=== PATIENT | female | born 1950 | race Caucasian/White ===

== ENCOUNTER 2022-02-13 07:57 | Outpatient (CLI) | payer MEDICARE ==
[~2022-02-13] VITALS: Ht 154.9 cm; Wt 83.6 kg
[2022-02-13] MEDS ORDERED: [UNRECOGNIZED DRUG - CODE] MC (12:13)
[2022-02-13] MEDS ORDERED: VITAMIN D3 (12:13)
[2022-02-13] MEDS ORDERED: TUMERIC (12:13)
[2022-02-13] MEDS ORDERED: VITAMIN C (12:13)
[2022-02-13] MEDS ORDERED: CBD (12:13)
[2022-02-13] MEDS ORDERED: DONE10TA41 PO (12:13)
[2022-02-13] MEDS ORDERED: CETI10TA17 PO (12:13)
[2022-02-13] MEDS ORDERED: FLUT9.9S NS (12:13)
[2022-02-13] MEDS ORDERED: MELO-170 PO (12:13)
[2022-02-13] MEDS ORDERED: HYDR12.56 PO (12:13)
[2022-02-13] MEDS ORDERED: LISI30TA5 PO (12:13)
[2022-02-13] MEDS ORDERED: PRED2.5T PO (12:13)
[2022-02-13] MEDS ORDERED: AMT10T PO (12:13)
[2022-02-13] MEDS ORDERED: PANT40TA52 PO (12:13)
[2022-02-13] MEDS ORDERED: DICL20GE TP (12:13)
[2022-02-13] MEDS ORDERED: ACET-93 PO (12:13)
[2022-02-13] MEDS ORDERED: META800T PO (12:13)
== END 2022-02-13 12:18 | disposition home or self-care (01) ==
LOC: PREOP 07:57
PROVIDERS: ATTEND Otolaryngology Otolaryngology/Facial Plastic Surgery
DX: Z01.818 Encounter for other preprocedural examination (principal)

== ENCOUNTER 2022-02-22 07:54 | Day surgery (SDC) | payer MEDICARE ==
[~2022-02-22] VITALS: Ht 154.9 cm; Wt 83.6 kg
[2022-02-22] VITALS (7 sets, daily range): BP systolic 174–188; BP diastolic 80–95
[~2022-02-22 07:54] MED LIST: ACET-93 PO; AMT10T PO; CBD; CETI10TA17 PO; DICL20GE TP; DONE10TA41 PO; FLUT9.9S NS; HYDR12.56 PO; LISI30TA5 PO; MELO-170 PO; META800T PO; PANT40TA52 PO; PRED2.5T PO; TUMERIC; VITAMIN C; VITAMIN D3; [UNRECOGNIZED DRUG - CODE] MC
[2022-02-22] MEDS ORDERED: LACTATED RINGERS 1,000 ML IV PRN (08:00)
[2022-02-22 08:34] LABS: BASOPHILS # (AUTO) 0.1 10^3/uL (0.0-0.1); BASOPHILS % (AUTO) 2 % (0-10); EOSINOPHILS # (AUTO) 0.4 10^3/uL (0.0-0.3); EOSINOPHILS % (AUTO) 6 % (0-10); HEMATOCRIT 41 % (35-52); HEMOGLOBIN 13.2 g/dL (11.5-16.0); LYMPHOCYTES # (AUTO) 2.5 10^3/uL (1.0-4.0); LYMPHOCYTES % (AUTO) 40 % (12-44); MEAN CORPUSCULAR HEMOGLOBIN 32 pg (25-34); MEAN CORPUSCULAR HGB CONC 32 g/dL (32-36); MEAN CORPUSCULAR VOLUME 100 fL (80-99); MEAN PLATELET VOLUME 9.6 fL (9.0-12.2); MONOCYTES # (AUTO) 0.5 10^3/uL (0.0-1.0); MONOCYTES % (AUTO) 8 % (0-12); NEUTROPHILS # (AUTO) 2.8 10^3/uL (1.8-7.8); NEUTROPHILS % (AUTO) 44 % (42-75); PLATELET COUNT 289 10^3/uL (130-400); WHITE BLOOD COUNT 6.3 10^3/uL (4.3-11.0)
[2022-02-22 08:46] LABS: POTASSIUM 3.6 MMOL/L (3.6-5.0)
[2022-02-22 08:47] LABS: CALCIUM 9.2 MG/DL (8.5-10.1)
[2022-02-22 08:51] LABS: CREATININE SERUM 0.89 MG/DL (0.60-1.30)
--- NOTE | 2022-02-22 08:51 | Progress Note-Pre Operative ---
Pre-Operative Progress Note H&P Reviewed The H&P was reviewed, patient examined and no changes noted. Date Seen by Provider: Feb 22, 2022 Time Seen by Provider: 08:45 Date H&P Reviewed: Feb 22, 2022 Time H&P Reviewed: 08:45 Pre-Operative Diagnosis: Chronic Right MORA RALPH NOLEN MD Feb 22, 2022 08:51
--- NOTE | 2022-02-22 08:51 | Progress Note-Post Operative ---
Post-Operative Progess Note Surgeon (s)/Custom Grinder (s) Surgeon RALPH NOLEN MD Custom Grinder n/a Pre-Operative Diagnosis Chronic Right MORA Post-Operative Diagnosis same Post-Op Procedure Note Date of Procedure: Feb 22, 2022 Name of Procedure Performed: Right MYringotomy wiht T-Tube Description & Findings Description and Findings: n/a Anesthesia Type lma Estimated Blood Loss minimal Packing none. Specimen(s) collected/removed none RALPH NOLEN MD Feb 22, 2022 08:51
[2022-02-22] MEDS ORDERED: ONDANSETRON 4 MG/2 ML (SDV) Z0FRAN ONE (08:58)
[2022-02-22] MEDS ORDERED: LIDOCAINE PF 2% 5 ML (XYLOCAINE) VIAL ONE (08:58)
[2022-02-22] MEDS ORDERED: proPOfol 200 MG/20 ML (DIPRIVAN) VIAL IV ONE (08:58)
[2022-02-22] MEDS ORDERED: fentaNYL INJ 100 MCG/2 ML AMP ONE (08:58)
[2022-02-22] MEDS ORDERED: APAP 325 MG/10.15 ML LIQ (TYLENOL) UDC PO PRN (09:00)
[2022-02-22] MEDS ORDERED: SEVOFLURANE (ULTANE) 15 ML INHAL SOLN ONE (09:40)
== END 2022-02-22 11:00 ==
LOC: SDC 07:54
PROVIDERS: ATTEND Otolaryngology Otolaryngology/Facial Plastic Surgery
DX: H65.21 Chronic serous otitis media, right ear (principal)
CPT/HCPCS: 36415; 80048; 85025; 87081